=== PATIENT | male | born 1945 | race Caucasian/White ===

== ENCOUNTER → 2017-08-21 | Outpatient (CLI) | payer MEDICARE ==
[~2017-08-21] MED LIST: ALBU6.7H IH; ASPI-496 PO; AZEL205. IH; CARI350T PO; CELE200C PO; DESO15CR21 TP; DIPH25TA65 PO; DOXA4TAB3 PO; FLUT10.6 IH; GABA-826 PO; GLUC1TAB48 PO; HYDR-3245 PO; IBUP-1223 PO; LANS30TA6 PO; LORA10CA PO; LOSA100T2 PO; MONT10TA6 PO; MULT-717 PO; OLOP2.5D EACHEYE; OXYC1TAB9 PO; TRAZ50TA18 PO; TUSSIONEX PO
== END | disposition home or self-care (01) ==
LOC: CVU 07:45
PROVIDERS: ATTEND Internal Medicine Cardiovascular Disease
DX: I25.10 Atherosclerotic heart disease of native coronary artery without angina pectoris (principal); I10 Essential (primary) hypertension; I08.2 Rheumatic disorders of both aortic and tricuspid valves
CPT/HCPCS: 93306

== ENCOUNTER 2017-11-21 13:24 | Emergency (ER) | payer MEDICARE ==
[~2017-11-21] VITALS: Ht 188 cm; Wt 120.0 kg
[2017-11-21] MEDS ORDERED: CYCL7.5T25 PO (13:56)
[2017-11-21] MEDS ORDERED: SODIUM CHLORIDE FLUSH 10ML SYR IVF ONE (14:00)
[2017-11-21 14:16] LABS: BASOPHILS # (AUTO) 0.02 x10^3/uL (0-0.1); BASOPHILS % (AUTO) 0 % (0-1); EOSINOPHILS # (AUTO) 0.16 x10^3/uL (0-0.4); EOSINOPHILS % (AUTO) 2 % (1-7); LYMPHOCYTES # (AUTO) 0.83 x10^3/uL (1-3.4); LYMPHOCYTES % (AUTO) 11 % (22-44); MD NO; MEAN CORPUSCULAR HEMOGLOBIN 31.2 pg (27.5-34.5); MEAN CORPUSCULAR VOLUME 94.4 fL (81-97); MEAN PLATELET VOLUME 6.8 fL (7.4-10.4); MONOCYTES # (AUTO) 0.35 x10^3/uL (0.2-0.8); MONOCYTES % (AUTO) 5 % (2-9); NEUTROPHILS # (AUTO) 6.23 x10^3/uL (1.8-6.8); NEUTROPHILS % (AUTO) 82 % (42-75); PLATELET COUNT 265 x10^3/uL (130-400); RED CELL DISTRIBUTION WIDTH 14.2 % (9.4-14.8)
[2017-11-21 14:24] LABS: INTERNATIONAL NORMALIZED RATIO 1.04 (0.93-1.1); PROTHROMBIN TIME 10.8 Seconds (9.6-11.5)
[2017-11-21 14:27] LABS: ALANINE AMINOTRANSFERASE 29 U/L (12-78); ALBUMIN 3.2 g/dL (3.4-5.0); ANION GAP 5 mmol/L (5-15); CALCIUM 8.4 mg/dL (8.5-10.1); CHLORIDE 108 mmol/L (98-107)
[2017-11-21 14:31] LABS: ALKALINE PHOSPHATASE 77 U/L (45-117); BILIRUBIN,TOTAL 0.3 mg/dL (0.2-1.0); CREATININE 1.56 mg/dL (0.7-1.3); TOTAL PROTEIN 6.7 g/dL (6.4-8.2); TROPONIN I < 0.015 ng/mL (0.000-0.045)
[2017-11-21 16:33] VITALS: BP 182/84
== END 2017-11-21 16:36 | disposition home or self-care (01) ==
LOC: ED 16:20
DX: R55 Syncope and collapse (principal); Z79.82 Long term (current) use of aspirin
CPT/HCPCS: 36415; 70450; 71045; 80053; 84484; 85025; 85610; 85730; 93005; 99285

== ENCOUNTER → 2018-04-19 | Outpatient (CLI) | payer MEDICARE ==
[~2018-04-19] MED LIST changes: +CYCL7.5T25 PO; +OXYC-432 PO; -OXYC1TAB9 PO; +TRAZ-136 PO; -TRAZ50TA18 PO
[2018-04-19 15:17] LABS: MICROSCOPIC NOT IND
[2018-04-19 15:27] LABS: CULTURE INDICATED? NO
== END | disposition home or self-care (01) ==
LOC: LAB 14:50
PROVIDERS: ATTEND Family Medicine
DX: N39.0 Urinary tract infection, site not specified (principal)
CPT/HCPCS: 81003

== ENCOUNTER → 2018-04-23 | Outpatient (CLI) | payer MEDICARE | END | disposition home or self-care (01) | LOC: RAD 08:33 | PROVIDERS: ATTEND Family Medicine | DX: G31.9 Degenerative disease of nervous system, unspecified (principal) | CPT/HCPCS: 70551 ==

== ENCOUNTER 2018-06-06 09:29 | Inpatient (IN) | payer MEDICARE ==
[~2018-06-06] VITALS: Ht 188 cm; Wt 114.5 kg
[~2018-06-06 09:29] MED LIST changes: +ACET-1600 PO; +AREDS 2 PO; +EPINEPHRINE 1 MG/ML, 1ML ONE; +FLUT9.9S NAS; +GABA300C10 PO; +KETO15CR2 TP; +KETOROLAC 60 MG/2 ML ONE; +MELATONIN PO; +OXYGEN NAS; +PRAV20TA2 PO; +ROPIvacaine/PF 0.5%, 30 ML ONE; +SODIUM CHLORIDE 0.9% 100 ML ONE; +TAMS-11 PO; +TIOT4MIS3 INH; +TRANEXAMIC ACID 100 MG/ML, 10ML ONE; -TRAZ-136 PO; +TRAZ50TA66 PO; +VANCOMYCIN 1,000 MG ONE
[2018-06-06] MEDS ORDERED: LACTATED RINGERS 1,000 ML IV SCH (10:11)
[2018-06-06] MEDS ORDERED: FENTANYL PF 250 MCG/5ML ONE (10:21)
[2018-06-06] MEDS ORDERED: SCOPOLAMINE PATCH, 1.5MG PATCH.TD72 TD ONE (10:30)
[2018-06-06] MEDS ORDERED: CYCLOBENZAPRINE HCL 7.5 MG PO PRN (10:30)
[2018-06-06] MEDS ORDERED: MAGNESIUM HYDROXIDE 8%, 30ML UDC PO PRN (10:30)
[2018-06-06] MEDS: GABAPENTIN 100 MG CAPSULE PO SCH (10:30)
[2018-06-06] MEDS ORDERED: ONDANSETRON 4 MG TABLET PO PRN (10:30)
[2018-06-06] MEDS: ALBUTEROL SULFATE 2.5 MG/3 ML NPPB SCH ×4 (10:30→22:30)
[2018-06-06] MEDS ORDERED: ZOLPIDEM 5MG TABLET PO PRN (10:30)
[2018-06-06] MEDS ORDERED: TEMPLATE NON-FORMULARY MED. (Olopatadine Hcl (Pataday) 1 DROP) EACHEYE SCH (10:30)
[2018-06-06] MEDS ORDERED: HYDROcodone/APAP 5/325 TABLET PO PRN (10:30)
[2018-06-06] MEDS ORDERED: BISACODYL 10 MG SUPP PR PRN (10:30)
[2018-06-06] MEDS ORDERED: GABAPENTIN 300 MG CAPSULE PO ONE (10:30)
[2018-06-06] MEDS ORDERED: ACETAMINOPHEN 500 MG TABLET PO ONE (10:30)
[2018-06-06] MEDS ORDERED: OxyconTIN ER 10 MG TAB.ER PO ONE (11:00)
[2018-06-06] MEDS ORDERED: DEXAMETHASONE 4 MG/ML, 1ML ONE (11:26)
[2018-06-06] MEDS ORDERED: CEFAZOLIN 1,000 MG ONE ×2 (11:27)
[2018-06-06] MEDS ORDERED: LABETALOL 5MG/ML, 20ML IV PRN (12:00)
[2018-06-06] MEDS ORDERED: PROMETHAZINE 12.5 MG SUPP PR PRN (12:00)
[2018-06-06] MEDS ORDERED: DIAZEPAM 5 MG/ML, 2ML IVPush PRN (12:00)
[2018-06-06] MEDS ORDERED: hydrALAzine 20 MG/ML, 1ML IV PRN (12:00)
[2018-06-06] MEDS ORDERED: ONDANSETRON 2MG/ML, 2ML IV PRN (12:00)
[2018-06-06] MEDS ORDERED: ONDANSETRON 2MG/ML, 2ML ONE ×2 (12:39)
[2018-06-06] MEDS ORDERED: PROPOFOL 10 MG/ML, 20ML ONE (12:39)
[2018-06-06] MEDS ORDERED: ROCURONIUM 10MG/ML,5ML ONE (12:39)
[2018-06-06] MEDS ORDERED: FENTANYL PF 100 MCG/2ML ONE (13:16)
[2018-06-06] MEDS ORDERED: OXYcodone 5 MG/5 ML ORAL.SOL UDC ONE ×2 (13:16→13:40)
[2018-06-06] MEDS: FENTANYL PF 100 MCG/2ML IV PRN ×2 (13:17→13:24)
[2018-06-06] MEDS: OXYcodone 5 MG/5 ML ORAL.SOL UDC PO PRN ×2 (13:23→13:41)
[2018-06-06] MEDS ORDERED: HYDROmorphone 2 MG/ML, 1ML ONE (13:32)
[2018-06-06] MEDS: HYDROmorphone 2 MG/ML, 1ML IVPush PRN ×4 (13:34→14:06)
[2018-06-06] MEDS: DIPHENHYDRAMINE 25 MG CAPSULE PO PRN (15:11)
[2018-06-06] MEDS: PATADAY MC SCH ×2 (15:30→23:30)
[2018-06-06] MEDS: ALBUTEROL MC SCH ×2 (15:30→23:30)
[2018-06-06] MEDS: OXYcodone IR 5MG TABLET PO PRN ×2 (17:48→22:01)
[2018-06-06] MEDS ORDERED: ASPIRIN 81 MG TABLET EC PO SCH (18:00)
[2018-06-06] MEDS: PRAVASTATIN 20 MG TABLET PO SCH (20:14)
[2018-06-06] MEDS: DOCUSATE 100 MG CAPSULE PO SCH (20:14)
[2018-06-06] MEDS: TAMSULOSIN 0.4 MG CAP.ER.24H PO SCH (20:14)
[2018-06-06] MEDS: GABAPENTIN 300 MG CAPSULE PO SCH (20:14)
[2018-06-06] MEDS: NS + 20MEQ KCL 1,000 ML IV SCH (20:15)
[2018-06-06] MEDS: CEFAZOLIN PMX 2GM/50ML 50 ML IVPB SCH (22:01)
[2018-06-07 00:25] VITALS: BP 104/66
[2018-06-07] MEDS: OXYcodone IR 5MG TABLET PO PRN ×5 (01:40→21:15)
[2018-06-07] MEDS: ALBUTEROL SULFATE 2.5 MG/3 ML NPPB SCH ×5 (02:30→18:51)
[2018-06-07 03:11] VITALS: BP 132/70
[2018-06-07] MEDS ORDERED: DEXAMETHASONE 4 MG/ML, 1ML IVPush SCH (06:00)
[2018-06-07] MEDS: RIVAROXABAN 10 MG TABLET PO SCH (06:07)
[2018-06-07] MEDS: CEFAZOLIN PMX 2GM/50ML 50 ML IVPB SCH (06:08)
[2018-06-07 07:10] VITALS: BP 133/78
[2018-06-07] MEDS: PATADAY MC SCH ×3 (07:52→23:30)
[2018-06-07] MEDS: GABAPENTIN 100 MG CAPSULE PO SCH (07:53)
[2018-06-07] MEDS: AZELASTINE HCL IH SCH (07:53)
[2018-06-07] MEDS: LOSARTAN 25MG TABLET PO SCH (07:54)
[2018-06-07] MEDS: DOXAZOSIN 1MG TABLET PO SCH (07:54)
[2018-06-07] MEDS: OMEPRAZOLE 20 MG CAPSULE.DR PO SCH (07:55)
[2018-06-07] MEDS: FLUTICASONE NASAL SPRAY 16GM NAS SCH (07:56)
[2018-06-07] MEDS: DOCUSATE 100 MG CAPSULE PO SCH ×2 (07:56→21:14)
[2018-06-07] MEDS: NS + 20MEQ KCL 1,000 ML IV SCH ×2 (09:38→22:00)
[2018-06-07] MEDS: ALBUTEROL MC SCH ×3 (09:38→23:30)
[2018-06-07 14:17] VITALS: BP 110/65
[2018-06-07 19:24] VITALS: BP 116/69
[2018-06-07] MEDS: TAMSULOSIN 0.4 MG CAP.ER.24H PO SCH (21:14)
[2018-06-07] MEDS: GABAPENTIN 300 MG CAPSULE PO SCH (21:15)
[2018-06-07] MEDS: PRAVASTATIN 20 MG TABLET PO SCH (21:15)
[2018-06-07] MEDS: ONDANSETRON 2MG/ML, 2ML IV PRN (23:26)
[2018-06-07] MEDS: ACETAMINOPHEN 650 MG/20.3 ML UDC PO PRN (23:26)
[2018-06-08] MEDS: OXYcodone IR 5MG TABLET PO PRN ×5 (01:28→21:15)
[2018-06-08 01:36] VITALS: BP 109/68
[2018-06-08] MEDS: ACETAMINOPHEN 650 MG/20.3 ML UDC PO PRN (05:42)
[2018-06-08] MEDS: SENNA/DOCUSATE TABLET PO PRN (05:42)
[2018-06-08] MEDS: RIVAROXABAN 10 MG TABLET PO SCH (05:42)
[2018-06-08] MEDS: ALBUTEROL SULFATE 2.5 MG/3 ML NPPB SCH (07:15)
[2018-06-08] MEDS: PATADAY MC SCH ×3 (07:30→23:30)
[2018-06-08] MEDS: ALBUTEROL MC SCH ×3 (07:30→23:30)
[2018-06-08] MEDS ORDERED: ALBUTEROL SULFATE 2.5 MG/3 ML NPPB PRN (08:00)
[2018-06-08] MEDS: DOXAZOSIN 1MG TABLET PO SCH (08:51)
[2018-06-08] MEDS: DOCUSATE 100 MG CAPSULE PO SCH ×2 (08:52→21:15)
[2018-06-08] MEDS: OMEPRAZOLE 20 MG CAPSULE.DR PO SCH (08:52)
[2018-06-08] MEDS: GABAPENTIN 100 MG CAPSULE PO SCH (08:52)
[2018-06-08] MEDS: LOSARTAN 25MG TABLET PO SCH (08:53)
[2018-06-08] MEDS: FLUTICASONE NASAL SPRAY 16GM NAS SCH (08:54)
[2018-06-08] MEDS: AZELASTINE HCL IH SCH (08:54)
[2018-06-08] MEDS: NS + 20MEQ KCL 1,000 ML IV SCH (08:56)
[2018-06-08 09:08] VITALS: BP 108/71
[2018-06-08] MEDS: ACETAMINOPHEN 650 MG/20.3 ML UDC PO SCH ×2 (14:00→21:18)
[2018-06-08] MEDS ORDERED: ACETAMINOPHEN 500 MG TABLET ONE (14:08)
[2018-06-08 14:36] VITALS: BP 106/67
[2018-06-08] MEDS: GABAPENTIN 300 MG CAPSULE PO SCH (21:14)
[2018-06-08] MEDS: TAMSULOSIN 0.4 MG CAP.ER.24H PO SCH (21:14)
[2018-06-08] MEDS: PRAVASTATIN 20 MG TABLET PO SCH (21:15)
[2018-06-08 21:16] VITALS: BP 96/62
[2018-06-09] MEDS: OXYcodone IR 5MG TABLET PO PRN ×2 (01:25→18:57)
[2018-06-09 01:28] VITALS: BP 137/85
[2018-06-09] MEDS: ONDANSETRON 2MG/ML, 2ML IV PRN (05:22)
[2018-06-09] MEDS: RIVAROXABAN 10 MG TABLET PO SCH (05:22)
[2018-06-09] MEDS: NS + 20MEQ KCL 1,000 ML IV SCH ×2 (05:39→17:00)
[2018-06-09] MEDS: ACETAMINOPHEN 650 MG/20.3 ML UDC PO SCH ×2 (05:41→14:00)
[2018-06-09 06:51] VITALS: BP 106/67
[2018-06-09] MEDS ORDERED: NS + 20MEQ KCL 1,000 ML IV SCH (07:30)
[2018-06-09] MEDS: PATADAY MC SCH ×3 (07:30→20:21)
[2018-06-09] MEDS: ALBUTEROL MC SCH ×3 (07:30→20:21)
[2018-06-09] MEDS ORDERED: POLYETHYLENE GLYCOL 17 GM PACKET NG ONE (07:30)
[2018-06-09] MEDS ORDERED: DEXAMETHASONE 4 MG/ML, 1ML IVPush ONE (07:30)
[2018-06-09] MEDS ORDERED: ACETAMINOPHEN 500 MG TABLET ONE ×3 (07:49→23:12)
[2018-06-09] MEDS: GABAPENTIN 100 MG CAPSULE PO SCH (07:53)
[2018-06-09] MEDS: DOXAZOSIN 1MG TABLET PO SCH (07:54)
[2018-06-09] MEDS: DOCUSATE 100 MG CAPSULE PO SCH ×2 (07:54→20:19)
[2018-06-09] MEDS: OMEPRAZOLE 20 MG CAPSULE.DR PO SCH (07:54)
[2018-06-09] MEDS: LOSARTAN 25MG TABLET PO SCH (07:54)
[2018-06-09] MEDS: FLUTICASONE NASAL SPRAY 16GM NAS SCH (07:54)
[2018-06-09] MEDS: AZELASTINE HCL IH SCH (07:55)
[2018-06-09 15:46] VITALS: BP 104/69
[2018-06-09 20:17] VITALS: BP 104/67
[2018-06-09] MEDS: SENNA/DOCUSATE TABLET PO PRN (20:18)
[2018-06-09] MEDS: PRAVASTATIN 20 MG TABLET PO SCH (20:19)
[2018-06-09] MEDS: GABAPENTIN 300 MG CAPSULE PO SCH (20:19)
[2018-06-09] MEDS: TAMSULOSIN 0.4 MG CAP.ER.24H PO SCH (20:19)
[2018-06-09] MEDS: ACETAMINOPHEN 500 MG TABLET PO SCH (23:14)
[2018-06-10 02:58] VITALS: BP 112/67
[2018-06-10] MEDS: OXYcodone IR 5MG TABLET PO PRN ×2 (05:21→23:01)
[2018-06-10] MEDS: RIVAROXABAN 10 MG TABLET PO SCH (05:21)
[2018-06-10] MEDS: NS + 20MEQ KCL 1,000 ML IV SCH ×2 (05:30→17:00)
[2018-06-10] MEDS: PATADAY MC SCH ×3 (06:33→23:01)
[2018-06-10] MEDS: ALBUTEROL MC SCH ×3 (06:33→23:01)
[2018-06-10] MEDS: GABAPENTIN 100 MG CAPSULE PO SCH (07:40)
[2018-06-10] MEDS: ACETAMINOPHEN 500 MG TABLET PO SCH ×3 (07:40→23:01)
[2018-06-10] MEDS: LOSARTAN 25MG TABLET PO SCH (07:40)
[2018-06-10] MEDS: AZELASTINE HCL IH SCH (07:41)
[2018-06-10] MEDS: FLUTICASONE NASAL SPRAY 16GM NAS SCH (07:41)
[2018-06-10] MEDS: OMEPRAZOLE 20 MG CAPSULE.DR PO SCH (07:41)
[2018-06-10] MEDS: DOXAZOSIN 1MG TABLET PO SCH (07:41)
[2018-06-10] MEDS: DOCUSATE 100 MG CAPSULE PO SCH ×2 (07:41→21:03)
[2018-06-10 07:58] VITALS: BP 107/64
[2018-06-10] MEDS ORDERED: OXYC5CAP2 PO (09:54)
[2018-06-10] MEDS ORDERED: TRAM50TA2 PO (09:55)
[2018-06-10] MEDS ORDERED: RIVA10TA PO (09:56)
[2018-06-10] MEDS ORDERED: MELO7.5T31 PO (09:57)
[2018-06-10] MEDS ORDERED: MAGNESIUM CITRATE 300ML ORAL SOL PO PRN (12:30)
[2018-06-10 14:06] VITALS: BP 107/54
[2018-06-10] MEDS: ONDANSETRON 2MG/ML, 2ML IV PRN (16:17)
[2018-06-10] MEDS ORDERED: PANTOPRAZOLE 40 MG IV IVPush ONE (17:00)
[2018-06-10 17:34] LABS: TROPONIN I < 0.015 ng/mL (0.000-0.045)
[2018-06-10] MEDS: DIPHENHYDRAMINE 25 MG CAPSULE PO PRN (18:23)
[2018-06-10 19:55] VITALS: BP 112/62
[2018-06-10] MEDS: PRAVASTATIN 20 MG TABLET PO SCH (21:03)
[2018-06-10] MEDS: GABAPENTIN 300 MG CAPSULE PO SCH (21:03)
[2018-06-10] MEDS: TAMSULOSIN 0.4 MG CAP.ER.24H PO SCH (21:03)
[2018-06-11 02:01] VITALS: BP 114/76
[2018-06-11] MEDS: RIVAROXABAN 10 MG TABLET PO SCH (06:23)
[2018-06-11] MEDS: NS + 20MEQ KCL 1,000 ML IV SCH (06:30)
[2018-06-11 08:25] VITALS: BP 152/82
[2018-06-11] MEDS: DOXAZOSIN 1MG TABLET PO SCH (09:21)
[2018-06-11] MEDS: GABAPENTIN 100 MG CAPSULE PO SCH (09:21)
[2018-06-11] MEDS: OMEPRAZOLE 20 MG CAPSULE.DR PO SCH (09:22)
[2018-06-11] MEDS: DOCUSATE 100 MG CAPSULE PO SCH (09:22)
[2018-06-11] MEDS: LOSARTAN 25MG TABLET PO SCH (09:22)
[2018-06-11] MEDS: ACETAMINOPHEN 500 MG TABLET PO SCH ×2 (09:22→15:30)
[2018-06-11] MEDS: AZELASTINE HCL IH SCH (09:25)
[2018-06-11] MEDS: FLUTICASONE NASAL SPRAY 16GM NAS SCH (09:25)
[2018-06-11] MEDS: PATADAY MC SCH ×2 (09:26→15:30)
[2018-06-11] MEDS ORDERED: CALCIUM CARBONATE 500 MG TAB.CHEW PO PRN (09:30)
[2018-06-11 13:49] VITALS: BP 156/79
[2018-06-11 18:12] VITALS: BP 104/67
[2018-06-11] MEDS: OXYcodone IR 5MG TABLET PO PRN (18:42)
== END 2018-06-11 18:45 | DRG 470 ==
LOC: ORIP 09:29 → 4NOR 14:48
PROVIDERS: ADMIT Orthopaedic Surgery; ATTEND Orthopaedic Surgery
PROC: 0SR906A Replacement of Right Hip Joint with Oxidized Zirconium on Polyethylene Synthetic Substitute, Uncemented, Open Approach (ICD-10-PCS; principal; 2018-06-06 11:45)
DX: M16.11 Unilateral primary osteoarthritis, right hip (principal); M96.89 Other intraoperative and postprocedural complications and disorders of the musculoskeletal system; Y83.8 Other surgical procedures as the cause of abnormal reaction of the patient, or of later complication, without mention of misadventure at the time of the procedure; Y79.3 Surgical instruments, materials and orthopedic devices (including sutures) associated with adverse incidents; Y92.234 Operating room of hospital as the place of occurrence of the external cause; K21.9 Gastro-esophageal reflux disease without esophagitis; J45.909 Unspecified asthma, uncomplicated; Z88.5 Allergy status to narcotic agent; Z98.1 Arthrodesis status; Z90.89 Acquired absence of other organs; Z98.52 Vasectomy status; Z86.711 Personal history of pulmonary embolism; Z88.2 Allergy status to sulfonamides; Z91.040 Latex allergy status
CPT/HCPCS: 36415; 72170; 76000; 84484; 85014; 85018; 86850; 86900; 93005; 94640; C1713; G0378; J0171; J0690; J1100; J1170; J1885; J2405; J2704; J2795; J3010; J3370; J3480; J7613; Q0162; C1776; C9113; J7120; Q0163

== ENCOUNTER → 2018-08-26 | Outpatient (CLI) | payer MEDICARE ==
[~2018-08-26] MED LIST changes: -EPINEPHRINE 1 MG/ML, 1ML ONE; -KETOROLAC 60 MG/2 ML ONE; +MELO7.5T31 PO; +OMNIPAQUE 350 MG/ML, 100ML BOTTLE ONE; +OXYC5CAP2 PO; +RIVA10TA2 PO; -ROPIvacaine/PF 0.5%, 30 ML ONE; -SODIUM CHLORIDE 0.9% 100 ML ONE; +TRAM50TA2 PO; -TRANEXAMIC ACID 100 MG/ML, 10ML ONE; -VANCOMYCIN 1,000 MG ONE
== END | disposition home or self-care (01) ==
LOC: RAD 13:23
PROVIDERS: ATTEND Family Medicine
DX: R42 Dizziness and giddiness (principal); I25.10 Atherosclerotic heart disease of native coronary artery without angina pectoris; I44.0 Atrioventricular block, first degree; R06.02 Shortness of breath; R06.00 Dyspnea, unspecified
CPT/HCPCS: 71275; Q9967

== ENCOUNTER 2018-11-16 11:13 | Observation (INO) | payer MEDICARE ==
[~2018-11-16] VITALS: Ht 185.4 cm; Wt 115.0 kg
[~2018-11-16 11:13] MED LIST changes: +KETO15CR17 TP; -KETO15CR2 TP; -OMNIPAQUE 350 MG/ML, 100ML BOTTLE ONE
[2018-11-16] MEDS ORDERED: NITROGLYCERIN SINGLE TAB 0.4 MG SL PRN (11:30)
[2018-11-16] MEDS ORDERED: NITROGLYCERIN SINGLE TAB 0.4 MG SL ONE (11:42)
[2018-11-16 11:44] LABS: BASOPHILS # (AUTO) 0.01 x10^3/uL (0-0.1); BASOPHILS % (AUTO) 0 % (0-1); EOSINOPHILS # (AUTO) 0.27 x10^3/uL (0-0.4); EOSINOPHILS % (AUTO) 3 % (1-7); LYMPHOCYTES # (AUTO) 1.16 x10^3/uL (1-3.4); LYMPHOCYTES % (AUTO) 14 % (22-44); MD NO; MEAN CORPUSCULAR HEMOGLOBIN 29.9 pg (27.5-34.5); MEAN CORPUSCULAR HGB CONC 32.4 g/dL (33.2-36.2); MEAN CORPUSCULAR VOLUME 92.4 fL (81-97); MEAN PLATELET VOLUME 7.2 fL (7.4-10.4); MONOCYTES # (AUTO) 0.27 x10^3/uL (0.2-0.8); MONOCYTES % (AUTO) 3 % (2-9); NEUTROPHILS # (AUTO) 6.87 x10^3/uL (1.8-6.8); NEUTROPHILS % (AUTO) 80 % (42-75); PLATELET COUNT 358 x10^3/uL (130-400); RED BLOOD COUNT 5.14 x10^6/uL (4.38-5.82); RED CELL DISTRIBUTION WIDTH 15.7 % (9.4-14.8)
[2018-11-16 11:55] LABS: INTERNATIONAL NORMALIZED RATIO 1.06 (0.93-1.1); PROTHROMBIN TIME 11.1 Seconds (9.6-11.5)
[2018-11-16 11:56] LABS: ALANINE AMINOTRANSFERASE 23 U/L (12-78); ALBUMIN 3.8 g/dL (3.4-5.0); ANION GAP 6 mmol/L (5-15); CALCIUM 8.9 mg/dL (8.5-10.1); CHLORIDE 106 mmol/L (98-107); CREATININE 1.34 mg/dL (0.7-1.3)
[2018-11-16 12:00] LABS: ALKALINE PHOSPHATASE 90 U/L (45-117); BILIRUBIN,TOTAL 0.4 mg/dL (0.2-1.0); TOTAL PROTEIN 7.7 g/dL (6.4-8.2); TROPONIN I < 0.015 ng/mL (0.000-0.045)
--- NOTE | 2018-11-16 12:34 | NUR ---
PT RESTING IN GURNEY WITH AT BEDSIDE, ON MONTOR. STATES PAIN IS BETTER AFTER NITRO. CALL LIGHT WITHIN REACH
--- NOTE | 2018-11-16 13:06 | NUR ---
PT STATED HE HAD ANOTHER EPISODE OF CP 01/31 CP AND WENT AWAY, MD NOTIFIED, EKG ORDERED
--- NOTE | 2018-11-16 13:07 | NUR ---
PT STATES HE DOES NOT WANT MORPHINE, IT MAKES HIM SICK, SUKHJINDER OFFERED, PT STATED THE PAIN IS GONE AND HE DOES NOT WANT MORPHINE HE DOES NOT LIKE IT. NOTIFIED
--- NOTE | 2018-11-16 13:13 | NUR ---
REPORT TO DEVEN GIORDANO
[2018-11-16] MEDS ORDERED: morphine SULFATE 10 MG/ML, 1ML IVPush ONE (13:30)
[2018-11-16] MEDS ORDERED: ASPI-515 PO (13:58)
[2018-11-16] MEDS ORDERED: MONT10TA6 PO (13:58)
[2018-11-16] MEDS ORDERED: FURO20TA3 PO ×2 (13:58)
[2018-11-16] MEDS ORDERED: CELE200C PO (13:58)
[2018-11-16] MEDS ORDERED: POTA10TA11 PO (13:58)
[2018-11-16] MEDS ORDERED: METO5TAB5 PO (13:58)
[2018-11-16] MEDS ORDERED: ALBU6.7H IH (13:58)
[2018-11-16] MEDS ORDERED: SODIUM CHLORIDE 0.9% 1,000 ML IV SCH (14:14)
[2018-11-16 14:18] VITALS: BP 117/69
[2018-11-16] MEDS ORDERED: ONDANSETRON ODT 4 MG PO PRN (14:30)
[2018-11-16] MEDS ORDERED: LABETALOL 5MG/ML, 20ML IVPush PRN (14:30)
[2018-11-16] MEDS ORDERED: ONDANSETRON 2MG/ML, 2ML IVPush PRN (14:30)
[2018-11-16] MEDS ORDERED: NITROGLYCERIN 0.4 MG/SPRAY SL PRN (14:30)
[2018-11-16] MEDS ORDERED: ALBUTEROL SULFATE 2.5 MG/3 ML HHN PRN (14:30)
[2018-11-16] MEDS ORDERED: CYCLOBENZAPRINE 10 MG TABLET PO PRN (14:30)
[2018-11-16] MEDS ORDERED: NITROGLYCERIN 0.4 MG BOTTLE (25 TABS) SL PRN (14:30)
[2018-11-16] MEDS ORDERED: POLYETHYLENE GLYCOL 17 GM PACKET PO PRN (14:30)
[2018-11-16] MEDS ORDERED: ACETAMINOPHEN 325 MG TABLET PO PRN (14:30)
[2018-11-16 15:15] LABS: TROPONIN I < 0.015 ng/mL (0.000-0.045)
[2018-11-16] MEDS: HEPARIN 5,000 UNITS/ML, 1ML SQ SCH (15:37)
[2018-11-16] MEDS ORDERED: OMNIPAQUE 350 MG/ML, 100ML BOTTLE ONE (17:07)
[2018-11-16 18:33] LABS: TROPONIN I < 0.015 ng/mL (0.000-0.045)
[2018-11-16 19:34] VITALS: BP 120/73
[2018-11-16] MEDS ORDERED: GABAPENTIN 300 MG CAPSULE PO SCH (21:00)
[2018-11-16] MEDS ORDERED: TAMSULOSIN 0.4 MG CAP.ER.24H PO SCH (21:00)
[2018-11-16] MEDS ORDERED: PRAVASTATIN 20 MG TABLET PO SCH (21:00)
[2018-11-16 22:25] VITALS: BP_SYST 134; BP_SYST 149; BP_DIAS 81; BP_DIAS 90
[2018-11-16 22:26] VITALS: BP 139/89
[2018-11-16] MEDS ORDERED: MONTELUKAST 10 MG TABLET PO SCH (23:30)
[2018-11-17] VITALS (7 sets, daily range): BP systolic 126–157; BP diastolic 56–95
[2018-11-17] MEDS: HEPARIN 5,000 UNITS/ML, 1ML SQ SCH ×3 (00:03→16:00)
[2018-11-17] MEDS: OXYcodone IR 5MG TABLET PO PRN ×2 (04:10→10:13)
[2018-11-17 06:18] LABS: ANION GAP 8 mmol/L (5-15); CALCIUM 8.4 mg/dL (8.5-10.1); CHLORIDE 107 mmol/L (98-107)
[2018-11-17 06:24] LABS: MEAN CORPUSCULAR HEMOGLOBIN 29.9 pg (27.5-34.5); MEAN CORPUSCULAR HGB CONC 32.3 g/dL (33.2-36.2); MEAN CORPUSCULAR VOLUME 92.6 fL (81-97); MEAN PLATELET VOLUME 7.2 fL (7.4-10.4); PLATELET COUNT 303 x10^3/uL (130-400); RED CELL DISTRIBUTION WIDTH 15.8 % (9.4-14.8)
[2018-11-17 06:25] LABS: BASOPHILS # (AUTO) 0.03 x10^3/uL (0-0.1); BASOPHILS % (AUTO) 0 % (0-1); EOSINOPHILS # (AUTO) 0.37 x10^3/uL (0-0.4); EOSINOPHILS % (AUTO) 4 % (1-7); LYMPHOCYTES # (AUTO) 1.62 x10^3/uL (1-3.4); LYMPHOCYTES % (AUTO) 18 % (22-44); MONOCYTES # (AUTO) 0.51 x10^3/uL (0.2-0.8); MONOCYTES % (AUTO) 6 % (2-9); NEUTROPHILS # (AUTO) 6.48 x10^3/uL (1.8-6.8); NEUTROPHILS % (AUTO) 72 % (42-75)
[2018-11-17 06:26] LABS: MD NO
[2018-11-17 06:30] LABS: CHOL/HDL RATIO 2.5; CHOLESTEROL, TOTAL 116 mg/dL (140-239); CREATININE 1.25 mg/dL (0.7-1.3); HDL CHOL % 40 % (26-37); HDL CHOLESTEROL (DIRECT) 46 mg/dL (40-60); LDL CHOLESTEROL,CALCULATED 55 mg/dL (54-169); LDL/HDL RATIO 1.2 (0.5-3.0); TRIGLYCERIDES 74 mg/dL (50-200); VLDL CHOLESTEROL 15 mg/dL (0-25)
[2018-11-17] MEDS ORDERED: PANTOPRAZOLE 40 MG IV IVPush SCH (07:30)
[2018-11-17] MEDS ORDERED: REGADENOSON 0.4 MG/5 ML SYRINGE ONE (07:49)
[2018-11-17] MEDS ORDERED: MULTIVITAMINS/MINERALS TABLET PO SCH (09:00)
[2018-11-17] MEDS ORDERED: SENNA/DOCUSATE TABLET PO SCH (09:00)
[2018-11-17] MEDS ORDERED: [UNRECOGNIZED DRUG - OTHER] PO SCH (09:00)
[2018-11-17] MEDS ORDERED: GLUCOSAM CHONDRO HERB PO SCH (09:00)
[2018-11-17] MEDS ORDERED: ASPIRIN 81 MG TABLET EC PO SCH (09:00)
[2018-11-17] MEDS ORDERED: FLUTICASONE NASAL SPRAY 16GM NAS SCH (09:00)
[2018-11-17] MEDS ORDERED: MONTELUKAST 10 MG TABLET PO SCH (09:00)
[2018-11-17] MEDS ORDERED: OXYcodone/APAP 10/325MG TABLET PO ONE (12:00)
[2018-11-17] MEDS ORDERED: SODIUM CHLORIDE 0.9% 1,000 ML IV SCH (14:14)
== END 2018-11-17 17:20 | disposition home or self-care (01) ==
LOC: ED 11:40 → 5SO 13:36 → ED 15:19 → 5SO 15:21
PROVIDERS: ADMIT Hospitalist; ATTEND Hospitalist
DX: R60.0 Localized edema (principal); G89.4 Chronic pain syndrome; N40.0 Benign prostatic hyperplasia without lower urinary tract symptoms; J44.9 Chronic obstructive pulmonary disease, unspecified; I10 Essential (primary) hypertension; E78.5 Hyperlipidemia, unspecified; Z86.718 Personal history of other venous thrombosis and embolism; Z91.040 Latex allergy status; Z91.09 Other allergy status, other than to drugs and biological substances; Z86.711 Personal history of pulmonary embolism; Z96.641 Presence of right artificial hip joint; Z96.652 Presence of left artificial knee joint; Z99.81 Dependence on supplemental oxygen
CPT/HCPCS: 36415; 71045; 71275; 78452; 80048; 80053; 80061; 83735; 83880; 84100; 84443; 84484; 85025; 85379; 85610; 85730; 93005; 93017; 93308; 96361; 96372; 96374; 96375; 99284; A9502; C9113; C9898; G0378; J1644; J2405; J2785; J7030; Q9967; 96366

== ENCOUNTER 2018-11-18 07:13 | Outpatient (CLI) | payer MEDICARE ==
[~2018-11-18 07:13] MED LIST changes: +ASPI-515 PO; +FURO20TA3 PO; +METO5TAB5 PO; +POTA10TA11 PO
== END 2018-11-19 23:59 | disposition home or self-care (01) ==
LOC: RAD 07:13
PROVIDERS: ATTEND Family Medicine
DX: M25.559 Pain in unspecified hip (principal)
CPT/HCPCS: 78806; A9547

== ENCOUNTER 2018-12-01 11:25 | Observation (INO) | payer MEDICARE ==
[~2018-12-01] VITALS: Ht 185.4 cm; Wt 111.4 kg
--- NOTE | 2018-12-01 11:50 | NUR ---
Pt asked MARKELL to, "please call my brother Ebenezer and let him know that I am here. His number is [phone]." Called Ebenezer and left voicemail for call back.
--- NOTE | 2018-12-01 11:56 | NUR ---
LATE NOTE ENTRY FOR 1135: Pt presents to ED by EMS as recommended by PCP for c/o "dizziness" and "sea sickness" for one month with nausea and "a few" episodes of vomiting after pt took two does of Cymbalta prescribed by his pain management doctor for his chronic back pain after eight back surgeries. Pt is resting on gureny connected to cardiac catheterization technologist, NIBP cuff, and pulse ox monitor. NADN. No needs expressed at this time. Both bedrails up for safety measures. Call light within reach. Pt denies cp, sob, vomiting, diarrhea, trauma. CMS intact.
--- NOTE | 2018-12-01 11:56 | NUR ---
Spoke to MRI regarding pt's spinal cord stimulator. All questions answered.
[2018-12-01] MEDS ORDERED: SODIUM CHLORIDE FLUSH 10ML SYR IVF ONE (12:00)
[2018-12-01] MEDS ORDERED: ONDANSETRON 2MG/ML, 2ML IVPush ONE (12:00)
[2018-12-01] MEDS ORDERED: DIAZEPAM 5 MG/ML, 2ML IVPush ONE (12:00)
--- NOTE | 2018-12-01 12:18 | NUR ---
Pt's brother Ebenezer called back. Spoke to Ebenezer, per pt verbal request, about pt's health and where abouts. All questions answered.
--- NOTE | 2018-12-01 12:19 | NUR ---
Sent yellow slip to pharmacy for medication per EMAR.
[2018-12-01 12:23] LABS: BASOPHILS # (AUTO) 0.02 x10^3/uL (0-0.1); BASOPHILS % (AUTO) 0 % (0-1); EOSINOPHILS # (AUTO) 0.36 x10^3/uL (0-0.4); EOSINOPHILS % (AUTO) 4 % (1-7); LYMPHOCYTES # (AUTO) 0.76 x10^3/uL (1-3.4); LYMPHOCYTES % (AUTO) 9 % (22-44); MD NO; MEAN CORPUSCULAR HEMOGLOBIN 29.8 pg (27.5-34.5); MEAN CORPUSCULAR VOLUME 90.4 fL (81-97); MEAN PLATELET VOLUME 6.7 fL (7.4-10.4); MONOCYTES # (AUTO) 0.43 x10^3/uL (0.2-0.8); MONOCYTES % (AUTO) 5 % (2-9); NEUTROPHILS % (AUTO) 82 % (42-75); PLATELET COUNT 268 x10^3/uL (130-400); RED BLOOD COUNT 5.15 x10^6/uL (4.38-5.82); RED CELL DISTRIBUTION WIDTH 16.1 % (9.4-14.8)
[2018-12-01] MEDS ORDERED: ONDANSETRON 2MG/ML, 2ML ONE (12:29)
[2018-12-01 12:37] LABS: CHLORIDE 106 mmol/L (98-107)
--- NOTE | 2018-12-01 12:45 | NUR ---
Provided medicaiton per EMAR. ARCOS. No needs expressed. Both bedrails up for safety measures. Call light within reach. Pt remains connected to quality assurance monitor chassis, NIBP cuff, and pulse ox monitor. Pt has NC on at 3 L of oxygen.
[2018-12-01 12:47] LABS: ALANINE AMINOTRANSFERASE 22 U/L (12-78); ALBUMIN 3.6 g/dL (3.4-5.0); ALKALINE PHOSPHATASE 92 U/L (45-117); ANION GAP 6 mmol/L (5-15); BILIRUBIN,TOTAL 0.6 mg/dL (0.2-1.0); CALCIUM 8.9 mg/dL (8.5-10.1); CREATININE 1.33 mg/dL (0.7-1.3); TOTAL PROTEIN 7.6 g/dL (6.4-8.2); TROPONIN I < 0.015 ng/mL (0.000-0.045)
[2018-12-01] MEDS ORDERED: LOSA25TA2 PO (13:03)
[2018-12-01] MEDS ORDERED: LANS30CA60 PO (13:03)
[2018-12-01] MEDS ORDERED: DOXA1TAB2 PO (13:03)
[2018-12-01] MEDS ORDERED: POTA10TA6 PO (13:03)
[2018-12-01] MEDS ORDERED: TIOT4MIS3 INH (13:06)
[2018-12-01] MEDS ORDERED: FLUT1BLS3 INH (13:06)
[2018-12-01] MEDS: SODIUM CHLORIDE FLUSH 10ML SYR IVF PRN ×2 (14:48→16:26)
--- NOTE | 2018-12-01 15:25 | NUR ---
Late note entry for 1330: Pt up at bedside using urinal. NADN. Pt back to [facility]. Both bedrails up for safety measures. Call light within reach. No other needs expressed at this time.
--- NOTE | 2018-12-01 15:26 | NUR ---
LATE NOTE FOR 1449: Pt resting on gurney and requesting to sit on edge of bed. Pt's spouse at bedside. Provided chair for spouse. Pt sitting on edge of bed. Call light within reach. NADN. No other needs expressed at this time.
[2018-12-01] MEDS ORDERED: GABA-826 PO (15:29)
[2018-12-01] MEDS ORDERED: Flonase NAS (15:36)
[2018-12-01] MEDS ORDERED: VITAMIN AREDS EACHEYE (15:36)
[2018-12-01] MEDS ORDERED: hydrocodone (15:39)
[2018-12-01] MEDS ORDERED: oxycodone (15:39)
[2018-12-01] MEDS ORDERED: flexeril (15:39)
[2018-12-01] MEDS ORDERED: ketoconazole (15:42)
[2018-12-01] MEDS ORDERED: Tylenol PO (15:42)
[2018-12-01] MEDS ORDERED: claritin (15:42)
[2018-12-01] MEDS ORDERED: [UNRECOGNIZED DRUG - OTHER] (15:42)
--- NOTE | 2018-12-01 15:59 | NUR ---
Provided report to PASQUALE Elias. All questions answered. Pt ready to transfer to floor from ED.
[2018-12-01 16:30] VITALS: BP 118/76
[2018-12-01] MEDS ORDERED: OXYcodone/APAP 10/325MG TABLET PO ONE (18:40)
[2018-12-01] MEDS ORDERED: ACETAMINOPHEN 325 MG TABLET PO PRN (19:30)
[2018-12-01] MEDS ORDERED: TEMAZEPAM 15 MG CAPSULE PO PRN (19:30)
[2018-12-01] MEDS: HEPARIN 5,000 UNITS/ML, 1ML SQ SCH (19:30)
[2018-12-01 20:31] VITALS: BP 129/80
[2018-12-01] MEDS ORDERED: ALBUTEROL SULFATE 2.5 MG/3 ML NPPB PRN (22:00)
[2018-12-02] VITALS (7 sets, daily range): BP systolic 122–148; BP diastolic 74–94
[2018-12-02] MEDS: HEPARIN 5,000 UNITS/ML, 1ML SQ SCH ×3 (02:44→19:30)
[2018-12-02 05:34] LABS: BASOPHILS # (AUTO) 0.03 x10^3/uL (0-0.1); BASOPHILS % (AUTO) 0 % (0-1); EOSINOPHILS # (AUTO) 0.54 x10^3/uL (0-0.4); EOSINOPHILS % (AUTO) 7 % (1-7); LYMPHOCYTES # (AUTO) 1.32 x10^3/uL (1-3.4); LYMPHOCYTES % (AUTO) 18 % (22-44); MD NO; MEAN CORPUSCULAR HEMOGLOBIN 30.4 pg (27.5-34.5); MEAN CORPUSCULAR HGB CONC 32.9 g/dL (33.2-36.2); MEAN CORPUSCULAR VOLUME 92.3 fL (81-97); MEAN PLATELET VOLUME 6.9 fL (7.4-10.4); MONOCYTES # (AUTO) 0.52 x10^3/uL (0.2-0.8); MONOCYTES % (AUTO) 7 % (2-9); NEUTROPHILS # (AUTO) 5.03 x10^3/uL (1.8-6.8); NEUTROPHILS % (AUTO) 68 % (42-75); PLATELET COUNT 244 x10^3/uL (130-400); RED BLOOD COUNT 4.72 x10^6/uL (4.38-5.82); RED CELL DISTRIBUTION WIDTH 16.3 % (9.4-14.8)
[2018-12-02 05:38] LABS: ANION GAP 5 mmol/L (5-15); CALCIUM 8.9 mg/dL (8.5-10.1); CHLORIDE 105 mmol/L (98-107); CREATININE 1.29 mg/dL (0.7-1.3)
[2018-12-02] MEDS: ONDANSETRON ODT 4 MG PO PRN (06:02)
[2018-12-02] MEDS: OXYcodone IR 5MG TABLET PO PRN ×2 (06:28→20:07)
[2018-12-02] MEDS ORDERED: OXYcodone 5 MG/5 ML ORAL.SOL UDC PO PRN (06:30)
[2018-12-02] MEDS: SENNA/DOCUSATE TABLET PO SCH (09:00)
[2018-12-02] MEDS: MECLIZINE 25 MG TABLET PO SCH ×3 (09:55→20:14)
[2018-12-02] MEDS: POLYETHYLENE GLYCOL 17 GM PACKET PO PRN ×2 (09:57→20:07)
[2018-12-02] MEDS ORDERED: ALBUTEROL SULFATE 2.5 MG/3 ML HHN SCH (16:00)
[2018-12-02] MEDS ORDERED: KETOCONAZOLE CRM 2%, 15GM TP SCH (16:00)
[2018-12-02] MEDS ORDERED: PRAVASTATIN 20 MG TABLET PO SCH (21:00)
[2018-12-03 00:49] VITALS: BP 129/85
[2018-12-03] MEDS: OXYcodone IR 5MG TABLET PO PRN (02:20)
[2018-12-03] MEDS: HEPARIN 5,000 UNITS/ML, 1ML SQ SCH (03:30)
[2018-12-03] MEDS: ONDANSETRON ODT 4 MG PO PRN (06:17)
[2018-12-03 07:35] VITALS: BP 123/80
[2018-12-03] MEDS ORDERED: MECL25TA4 PO (08:28)
[2018-12-03] MEDS: MECLIZINE 25 MG TABLET PO SCH (08:35)
[2018-12-03] MEDS: SENNA/DOCUSATE TABLET PO SCH (08:36)
[2018-12-03] MEDS ORDERED: FLUTICASONE NASAL SPRAY 16GM NAS SCH (09:00)
[2018-12-03] MEDS ORDERED: AZELASTINE HCL IH SCH (09:00)
[2018-12-03] MEDS ORDERED: OMEPRAZOLE 20 MG CAPSULE.DR PO SCH (09:00)
[2018-12-03] MEDS ORDERED: BUDESONIDE 0.5 MG/2 ML INHA HHN SCH (09:00)
[2018-12-03] MEDS ORDERED: ASPIRIN 81 MG TABLET EC PO SCH (09:00)
[2018-12-03] MEDS ORDERED: DOXAZOSIN 1MG TABLET PO SCH (09:00)
[2018-12-03] MEDS ORDERED: LOSARTAN 25MG TABLET PO SCH (09:00)
== END 2018-12-03 10:19 | disposition home or self-care (01) ==
LOC: ED 13:55 → EDIP 15:19 → INTOOBSV 15:19 → 4WST 16:14 → DCLOUNGE 12-03 10:06
PROVIDERS: ADMIT Emergency Medicine; ATTEND Emergency Medicine
DX: R42 Dizziness and giddiness (principal); I13.0 Hypertensive heart and chronic kidney disease with heart failure and stage 1 through stage 4 chronic kidney disease, or unspecified chronic kidney disease; N18.9 Chronic kidney disease, unspecified; I50.30 Unspecified diastolic (congestive) heart failure; J44.9 Chronic obstructive pulmonary disease, unspecified; E78.5 Hyperlipidemia, unspecified; N40.0 Benign prostatic hyperplasia without lower urinary tract symptoms; F11.20 Opioid dependence, uncomplicated; J96.10 Chronic respiratory failure, unspecified whether with hypoxia or hypercapnia; R60.0 Localized edema; M54.9 Dorsalgia, unspecified; M25.551 Pain in right hip; G89.4 Chronic pain syndrome; Z86.711 Personal history of pulmonary embolism; Z86.718 Personal history of other venous thrombosis and embolism; Z87.891 Personal history of nicotine dependence; Z91.040 Latex allergy status; Z91.02 Food additives allergy status; Z96.641 Presence of right artificial hip joint; Z96.652 Presence of left artificial knee joint; Z79.82 Long term (current) use of aspirin; Z79.899 Other long term (current) drug therapy
CPT/HCPCS: 36415; 70450; 71045; 80048; 80053; 84484; 85025; 93005; 93880; 96374; 96375; 97162; 99284; G0378; J2405; J3360; Q0162

== ENCOUNTER → 2018-12-11 | Outpatient (CLI) | payer MEDICARE ==
[~2018-12-11] MED LIST changes: +DOXA1TAB2 PO; +FLUT1BLS3 INH; +Flonase NAS; +LANS30CA60 PO; +LOSA25TA2 PO; +MECL25TA4 PO; +OMNIPAQUE 350 MG/ML, 100ML BOTTLE ONE; +POTA10TA6 PO; +Tylenol PO; +VITAMIN AREDS EACHEYE; +[UNRECOGNIZED DRUG - OTHER]; +claritin; +flexeril; +hydrocodone; +ketoconazole; +oxycodone
== END | disposition home or self-care (01) ==
LOC: RAD 11:36
PROVIDERS: ATTEND Family Medicine
DX: I65.22 Occlusion and stenosis of left carotid artery (principal); M51.36 Other intervertebral disc degeneration, lumbar region
CPT/HCPCS: 70496; 70498; Q9967

== ENCOUNTER 2019-01-21 12:12 | Outpatient (CLI) | payer MEDICARE ==
[~2019-01-21 12:12] MED LIST changes: -ALBU6.7H IH; +ALBU6.7H8 IH; -OMNIPAQUE 350 MG/ML, 100ML BOTTLE ONE
== END 2019-01-21 23:59 | disposition home or self-care (01) ==
LOC: RAD 12:12
PROVIDERS: ATTEND Family Medicine
DX: G31.9 Degenerative disease of nervous system, unspecified (principal); M47.816 Spondylosis without myelopathy or radiculopathy, lumbar region; G89.29 Other chronic pain; Z98.890 Other specified postprocedural states
CPT/HCPCS: 70551; 72148

== ENCOUNTER 2020-01-29 08:29 | Outpatient (CLI) | payer MEDICARE ==
[~2020-01-29 08:29] MED LIST changes: +MECL-101 PO; -MECL25TA4 PO; -OLOP2.5D EACHEYE; +OLOP2.5D12 EACHEYE
== END 2020-01-29 23:59 | disposition home or self-care (01) ==
LOC: CVU 08:29
PROVIDERS: ATTEND Internal Medicine Cardiovascular Disease
DX: I11.9 Hypertensive heart disease without heart failure (principal); I42.2 Other hypertrophic cardiomyopathy
CPT/HCPCS: C8929; Q9957

== ENCOUNTER 2020-02-05 13:29 | Emergency (ER) | payer MEDICARE ==
[~2020-02-05] VITALS: Ht 185.4 cm; Wt 128.0 kg
--- NOTE | 2020-02-05 13:54 | NUR ---
BIBA. PT C/O DIFFICULTY SWALLOWING X 3 DAYS. DENIES COUGH/SORE THROAT/N/V/SOB. PT'S AOX4. RESPS EVEN AND UNLABORED. BP/SPO2 MONITORS IN PLACE. CALL LIGHT WITHIN REACH.
--- NOTE | 2020-02-05 14:22 | NUR ---
WATER PROVIDED PER REQUEST. EDMD OK'D TO GIVE SOME WATER.
--- NOTE | 2020-02-05 14:28 | NUR ---
PT REFUSED TO CHANGE. URINAL GIVEN PER REQUEST.
--- NOTE | 2020-02-05 15:16 | NUR ---
PT RESTING IN [facility]. PT'S AOX4. RESPS EVEN AND UNLABORED. BP/SPO2 MONITORS IN PLACE. CALL LIGHT WITHIN REACH.
--- NOTE | 2020-02-05 15:37 | NUR ---
PT'S UPDATED BY PHONE WITH PT'S PERMISSION AT THIS TIME.
--- NOTE | 2020-02-05 16:10 | NUR ---
PT RESTING IN [facility]. PT'S AOX4. RESPS EVEN AND UNLABORED. BP/SPO2 MONITORS IN PLACE. CALL LIGHT WITHIN REACH.
--- NOTE | 2020-02-05 16:20 | NUR ---
EDMD AT BEDSIDE TO EXPLAIN ALL RESULTS AT THIS TIME.
[2020-02-05 16:21] VITALS: BP 152/88
[2020-02-05] MEDS ORDERED: DEXTROSE 50%, 50ML SYRINGE IVPush PRN (16:30)
[2020-02-05] MEDS ORDERED: GLUCAGON 1 MG IM PRN (16:30)
--- NOTE | 2020-02-05 17:07 | NUR ---
Patient given discharge instructions and they have confirmed that they understand the instructions. Patient ambulatory with steady gait.
[2020-02-05] MEDS ORDERED: SODIUM CHLORIDE FLUSH 10ML SYR IVF SCH (21:00)
== END 2020-02-05 17:08 | disposition home or self-care (01) ==
LOC: ED 15:36
DX: J01.01 Acute recurrent maxillary sinusitis (principal); B96.89 Other specified bacterial agents as the cause of diseases classified elsewhere; R13.10 Dysphagia, unspecified; I10 Essential (primary) hypertension; J44.9 Chronic obstructive pulmonary disease, unspecified
CPT/HCPCS: 70360; 70486; 99284

== ENCOUNTER 2020-02-10 07:52 | Emergency (ER) | payer MEDICARE ==
[~2020-02-10] VITALS: Ht 188 cm; Wt 127.2 kg
[2020-02-10 08:43] LABS: BASOPHILS # (AUTO) 0.02 x10^3/uL (0-0.1); BASOPHILS % (AUTO) 0 % (0-1); EOSINOPHILS # (AUTO) 0.15 x10^3/uL (0-0.4); EOSINOPHILS % (AUTO) 1 % (1-7); LYMPHOCYTES # (AUTO) 1.34 x10^3/uL (1-3.4); LYMPHOCYTES % (AUTO) 12 % (22-44); MD NO; MEAN CORPUSCULAR HEMOGLOBIN 30.3 pg (27.5-34.5); MEAN CORPUSCULAR VOLUME 94.6 fL (81-97); MEAN PLATELET VOLUME 6.5 fL (7.4-10.4); MONOCYTES # (AUTO) 0.27 x10^3/uL (0.2-0.8); MONOCYTES % (AUTO) 2 % (2-9); NEUTROPHILS # (AUTO) 9.69 x10^3/uL (1.8-6.8); NEUTROPHILS % (AUTO) 85 % (42-75); PLATELET COUNT 289 x10^3/uL (130-400); RED CELL DISTRIBUTION WIDTH 14.3 % (9.4-14.8)
[2020-02-10] MEDS ORDERED: MAALOX/HYOSCYAMINE/LIDOCAINE 45 ML BTL ONE (08:47)
[2020-02-10 08:53] LABS: ALANINE AMINOTRANSFERASE 51 U/L (12-78); ALBUMIN 3.2 g/dL (3.4-5.0); ANION GAP 6 mmol/L (5-15); CALCIUM 8.3 mg/dL (8.5-10.1); CHLORIDE 104 mmol/L (98-107); CREATININE 1.14 mg/dL (0.7-1.3)
[2020-02-10 08:58] LABS: ALKALINE PHOSPHATASE 80 U/L (45-117); BILIRUBIN,TOTAL 0.5 mg/dL (0.2-1.0); TOTAL PROTEIN 7.2 g/dL (6.4-8.2); TROPONIN I < 0.015 ng/mL (0.000-0.045)
[2020-02-10] MEDS ORDERED: MAALOX/HYOSCYAMINE/LIDOCAINE 45 ML BTL PO ONE (09:00)
--- NOTE | 2020-02-10 09:00 | NUR ---
PT UPRIGHT ON [facility], RESPONDS APPROP TO STAFF, C/O PERSISTENT BURNING SENSATION & RELUCTANT TO TAKE GI COCKTAIL ("I'M AFRAID IT WILL CAUSE ME TO HAVE TROUBLE SWALLOWING AGAIN"), DR JAIMES NOTIFED & SPOKE TO PT, PT AGREEABLE TO TRYING GI COCKTAIL, NO NEEDS AT THIS TIME, CALL LIGHT WITHIN REACH
[2020-02-10] MEDS ORDERED: SODIUM CHLORIDE FLUSH 10ML SYR IVF ONE (09:30)
[2020-02-10] MEDS ORDERED: FAMOTIDINE 20 MG/2 ML IV ONE (10:00)
[2020-02-10 10:02] VITALS: BP 157/103
--- NOTE | 2020-02-10 10:18 | NUR ---
Patient given discharge instructions and Rx, they have confirmed that they understand the instructions. Patient ambulatory with steady gait.
== END 2020-02-10 11:07 | disposition home or self-care (01) ==
LOC: ED 10:16
DX: R13.14 Dysphagia, pharyngoesophageal phase (principal); J44.9 Chronic obstructive pulmonary disease, unspecified; G89.29 Other chronic pain; R94.31 Abnormal electrocardiogram [ECG] [EKG]; I10 Essential (primary) hypertension; Z88.2 Allergy status to sulfonamides
CPT/HCPCS: 36415; 71045; 80053; 83690; 84484; 85025; 93005; 99285

== ENCOUNTER → 2020-04-15 | Outpatient (CLI) | payer MEDICARE ==
[~2020-04-15] MED LIST changes: -OXYC-432 PO; +OXYC1TAB18 PO
== END | disposition home or self-care (01) ==
LOC: STAR 09:13
PROVIDERS: ATTEND Anesthesiology
DX: Z01.812 Encounter for preprocedural laboratory examination (principal); Z20.828 Contact with and (suspected) exposure to other viral communicable diseases
CPT/HCPCS: 87635

== ENCOUNTER 2020-04-19 05:39 | Day surgery (SDC) | payer MEDICARE ==
[~2020-04-19] VITALS: Ht 185.4 cm; Wt 130.0 kg
[2020-04-19] MEDS ORDERED: CHLORHEXIDINE 15 ML UDC MM STA (06:14)
[2020-04-19] MEDS ORDERED: LACTATED RINGERS 1,000 ML IV SCH (06:14)
[2020-04-19 06:16] VITALS: BP 150/89
[2020-04-19] MEDS ORDERED: BACITRACIN OINT 500U/GM, 15 GM ONE (06:49)
[2020-04-19] MEDS ORDERED: FLUORESCEIN SODIUM 500 MG/5 ML ONE (06:49)
[2020-04-19] MEDS ORDERED: EPINEPHRINE TOPICAL SOLN 1 MG/ML, 30ML ONE (06:49)
[2020-04-19] MEDS ORDERED: LIDOCAINE/PF 1%-EPI 1:200K, 30 ML ONE (06:49)
[2020-04-19] MEDS ORDERED: OXYMETAZOLINE NASAL SPRAY 0.05%,30ML ONE (06:50)
[2020-04-19] MEDS ORDERED: LIDOCAINE/PF 1%, 30ML ONE (07:02)
[2020-04-19] MEDS ORDERED: EPINEPHRINE 1 MG/ML, 1ML ONE (07:03)
[2020-04-19] MEDS ORDERED: PROPOFOL 10 MG/ML, 20ML ONE (07:29)
[2020-04-19] MEDS ORDERED: LIDOCAINE-MPF 2% ,5ML ONE ×5 (07:29→08:17)
[2020-04-19] MEDS ORDERED: SUCCINYLCHOLINE 20 MG/ML, 10ML ONE (07:39)
[2020-04-19] MEDS ORDERED: FENTANYL PF 100 MCG/2ML ONE (07:41)
[2020-04-19] MEDS ORDERED: OXYcodone 5 MG/5 ML ORAL.SOL UDC PO PRN (08:00)
[2020-04-19] MEDS ORDERED: ONDANSETRON 2MG/ML, 2ML IVPush PRN (08:00)
[2020-04-19] MEDS ORDERED: FENTANYL PF 100 MCG/2ML IV PRN (08:00)
[2020-04-19] MEDS ORDERED: CEFAZOLIN 1,000 MG ONE ×2 (08:07)
== END 2020-04-19 09:50 | disposition home or self-care (01) ==
LOC: OUT 05:39
PROVIDERS: ATTEND Otolaryngology
DX: J34.89 Other specified disorders of nose and nasal sinuses (principal); J31.0 Chronic rhinitis; J34.2 Deviated nasal septum; I10 Essential (primary) hypertension; E78.5 Hyperlipidemia, unspecified; J44.9 Chronic obstructive pulmonary disease, unspecified; Z86.711 Personal history of pulmonary embolism; G47.33 Obstructive sleep apnea (adult) (pediatric); K21.9 Gastro-esophageal reflux disease without esophagitis; Z79.82 Long term (current) use of aspirin; Z79.899 Other long term (current) drug therapy; Z91.040 Latex allergy status; Z88.2 Allergy status to sulfonamides; Z99.81 Dependence on supplemental oxygen
CPT/HCPCS: 30220; 31237; 88305; J0171; J0330; J0690; J2704; J3010; J7120

== ENCOUNTER 2020-07-17 20:19 | Emergency (ER) | payer MEDICARE ==
[~2020-07-17] VITALS: Ht 185.4 cm; Wt 123.4 kg
[2020-07-17] MEDS ORDERED: FAMOTIDINE 20 MG/2 ML IVPush ONE (21:00)
[2020-07-17 21:05] LABS: BASOPHILS % (AUTO) 0 % (0-1); EOSINOPHILS % (AUTO) 8 % (1-7); LYMPHOCYTES % (AUTO) 11 % (22-44); MEAN CORPUSCULAR HEMOGLOBIN 31.1 pg (27.5-34.5); MEAN CORPUSCULAR HGB CONC 33.3 g/dL (33.2-36.2); MEAN PLATELET VOLUME 6.7 fL (7.4-10.4); MONOCYTES % (AUTO) 6 % (2-9); NEUTROPHILS % (AUTO) 75 % (42-75); PLATELET COUNT 278 x10^3/uL (130-400); RED BLOOD COUNT 4.47 x10^6/uL (4.38-5.82); RED CELL DISTRIBUTION WIDTH 14.4 % (9.4-14.8)
[2020-07-17 21:08] LABS: MD NO
[2020-07-17] MEDS ORDERED: FAMOTIDINE 20 MG/2 ML ONE (21:11)
[2020-07-17 21:18] LABS: ALANINE AMINOTRANSFERASE 25 U/L (12-78); ALBUMIN 3.3 g/dL (3.4-5.0); ANION GAP 5 mmol/L (5-15); CHLORIDE 100 mmol/L (98-107); CREATININE 1.11 mg/dL (0.7-1.3)
[2020-07-17 21:20] LABS: ALKALINE PHOSPHATASE 92 U/L (45-117); BILIRUBIN,TOTAL 0.3 mg/dL (0.2-1.0); TOTAL PROTEIN 7.2 g/dL (6.4-8.2)
--- NOTE | 2020-07-17 21:41 | NUR ---
PT TO IMAGING
--- NOTE | 2020-07-17 21:56 | NUR ---
LATE ENTRY. BIBA FROM HOME FOR N/V. PT HAS HAD N/V FOR 2-3 WEEKS AND HAS SEEN GI SPECIALIST OUTPT WITH PLANS FOR CT ON 07/25/20. PT HAS BEEN ON LIQUID DIET AND ATTEMPTED TO EAT SOLID FOODS TODAY WHEN THE N/V BECAME WORSE. PT ALSO STATES MUSCLES ON HIS LEFT SIDE OF NECK HAS AFFECTED HIS SWALLOWING. PT TOOK PHENERGAN AT HOME PO AND EMS GAVE IM PHENERGAN. PTS AT BEDSIDE, ALSO STATING SHE WOULD LIKE PT TO HAVE SCOPE DONE AT SOMEPOINT. PT ON 4 L NC BASELINE FOR COPD.
[2020-07-17 22:07] LABS: MICROSCOPIC NOT IND
--- NOTE | 2020-07-17 22:40 | NUR ---
DIOGENES [phone]
[2020-07-17] MEDS ORDERED: OMNIPAQUE 350 MG/ML, 100ML BOTTLE ONE (23:46)
[2020-07-17 23:56] VITALS: BP 120/71
== END 2020-07-17 23:58 | disposition home or self-care (01) ==
LOC: ED 22:01
DX: R10.31 Right lower quadrant pain (principal); G89.29 Other chronic pain; R13.10 Dysphagia, unspecified; R11.10 Vomiting, unspecified; J44.9 Chronic obstructive pulmonary disease, unspecified; I10 Essential (primary) hypertension
CPT/HCPCS: 36415; 70491; 74177; 80053; 81003; 83690; 85025; 96374; 99285; Q9967

== ENCOUNTER 2020-07-25 09:26 | Outpatient (CLI) | payer MEDICARE ==
[~2020-07-25 09:26] MED LIST changes: -ASPI-515 PO; +ASPI-963 PO; -HYDR-3245 PO; +HYDR1TAB53 PO
== END 2020-07-25 23:59 | disposition home or self-care (01) ==
LOC: RAD 09:26
PROVIDERS: ATTEND Nurse Practitioner
DX: R10.11 Right upper quadrant pain (principal)
CPT/HCPCS: 74230

== ENCOUNTER → 2020-08-16 | Outpatient (CLI) | payer MEDICARE | END | disposition home or self-care (01) | LOC: STAR 14:39 | PROVIDERS: ATTEND Internal Medicine | DX: Z01.812 Encounter for preprocedural laboratory examination (principal); Z20.822 Contact with and (suspected) exposure to COVID-19; R13.10 Dysphagia, unspecified; K21.9 Gastro-esophageal reflux disease without esophagitis | CPT/HCPCS: 87635; 93005 ==

== ENCOUNTER 2020-08-22 05:41 | Emergency (ER) | payer MEDICARE ==
[~2020-08-22] VITALS: Ht 182.9 cm; Wt 130.8 kg
[2020-08-22] MEDS ORDERED: HYDROmorphone 2 MG/ML, 1ML IVPush PRN (06:00)
[2020-08-22] MEDS ORDERED: ONDANSETRON 2MG/ML, 2ML IVPush ONE (06:00)
[2020-08-22] MEDS ORDERED: SODIUM CHLORIDE FLUSH 10ML SYR IVF ONE (06:00)
[2020-08-22] MEDS ORDERED: HYDROmorphone 1 MG/ML, 1ML INJ ONE (06:10)
[2020-08-22] MEDS ORDERED: ONDANSETRON 2MG/ML, 2ML ONE (06:10)
[2020-08-22 06:31] LABS: BASOPHILS % (AUTO) 1 % (0-1); EOSINOPHILS % (AUTO) 8 % (1-7); LYMPHOCYTES % (AUTO) 15 % (22-44); MEAN PLATELET VOLUME 6.9 fL (7.4-10.4); MONOCYTES % (AUTO) 6 % (2-9); NEUTROPHILS % (AUTO) 69 % (42-75); PLATELET COUNT 301 x10^3/uL (130-400); RED BLOOD COUNT 4.27 x10^6/uL (4.38-5.82); RED CELL DISTRIBUTION WIDTH 14.3 % (9.4-14.8)
--- NOTE | 2020-08-22 06:34 | NUR ---
BIB [facility] WITH C/O CONSTIPATION FOR 3 DAYS. PATIENT STATES "IM THROWING UP THIS CLEAR STUFF". PATIENT NOTED TO BE SPITTING UP SALIVA INTO EMESIS BAG. DENIES ANY COFFEE GROUND VOMITUS AND REPORTS IT TO BE ALL CLEAR IS SEEN IN EMESIS BAG. ALSO, C/O ABDOMINAL PAIN "TIGHTNESS/PRESSURE". ROUNDED DISTENDED ABDOMEN NOTED WITH PRESENT BOWEL SOUNDS. PATIENT HAS MED LIST WITH HIM BUT THIS IS VERY LONG IN LENGTH. IV PRESENT ON ARRIVAL - FLUSHED WITH NS. PATIENT STOOD AT BEDSIDE TO USE URINAL WITH STANDBY ASSIST HE IS STEADY ON FEET BUT SWAYING BACK AND FORTH AT TIMES. RN AT BEDSIDE FOR SAFETY. UA COLLECTED AND SENT. PATIENT C/O "IM COLD". WARM BLANKETS PROVIDED. PILLOW PROVIDED FOR COMFORT. PATIENT REPORTS HAVING A SPINAL STIMULATOR WELL. VS REMAIN STABLE ON BASELINE 4L VIA NC. NEW O2 NASAL CANNULA PROVIDED PER PATIENT REQUEST. AT BEDSIDE. CALL WYATT IN REACH. I ADMINISTERED ORDERED MEDICATION OF ZOFRAN AND DILAUDID. I EDUCATED PATIENT ON THESE MEDICATIONS PRIOR TO ADMINISTERING. PATIENT BECAME BRIEFLY DIZZY AFTER DILAUDID ADMINISTERED SLOWLY OVER 2 MINUTES. WILL CONTINUE TO MONITOR. SAFETY MAINTAINED
[2020-08-22 06:36] LABS: ALBUMIN 3.4 g/dL (3.4-5.0); ANION GAP 4 mmol/L (5-15); CALCIUM 9.6 mg/dL (8.5-10.1); CHLORIDE 107 mmol/L (98-107)
[2020-08-22 06:38] LABS: MICROSCOPIC NOT IND
[2020-08-22 06:39] LABS: ALANINE AMINOTRANSFERASE 24 U/L (12-78); ALKALINE PHOSPHATASE 83 U/L (45-117); BILIRUBIN,TOTAL 0.5 mg/dL (0.2-1.0); CREATININE 1.05 mg/dL (0.7-1.3)
[2020-08-22 06:40] LABS: MD NO
--- NOTE | 2020-08-22 06:52 | NUR ---
REPORT GIVEN TO PERFECTO GIORDANO AND CARE TRANSFERRED. PATIENT RETURNED FROM CT
[2020-08-22] MEDS ORDERED: OMNIPAQUE 350 MG/ML, 100ML BOTTLE ONE (06:55)
--- NOTE | 2020-08-22 07:00 | NUR ---
Report received from PASQUALE Rodriguez and care assumed. Pt just arrived back on unit from radiology without acute changes noted per off-going RN.
--- NOTE | 2020-08-22 07:32 | NUR ---
Full assessment completed, monitor lines untangled, O2 increased from 2L/min to 4L/min as he uses at home secondary to SpO2 at 93% at the lower flow rate. Call light in reach, and pain rated as 3/10 at this time after medical appliance maker by production shift supervisor RN.
[2020-08-22] MEDS ORDERED: CHOL500050 PO (08:18)
[2020-08-22] MEDS ORDERED: OMEG1CAP39 PO (08:18)
[2020-08-22] MEDS ORDERED: GUAI118L49 PO (08:18)
[2020-08-22] MEDS ORDERED: HYDR-3248 PO (08:18)
[2020-08-22] MEDS ORDERED: GABA300C PO (08:18)
[2020-08-22] MEDS ORDERED: TRIA15CR2 TD (08:18)
[2020-08-22] MEDS ORDERED: MONT10TA6 PO (08:18)
[2020-08-22] MEDS ORDERED: TADA5TAB13 PO (08:18)
[2020-08-22] MEDS ORDERED: TRIA10.8 INH (08:18)
--- NOTE | 2020-08-22 08:38 | NUR ---
Note luisaone in EDM - 08/22/20 at 0904 by BIRD Pt assisted to standing position at bedside for use of urinal with 175mL clear, light yellow uop emptied with urinal returned to bedside. VS reassessed with noted decreased BP at this time. Pt states abd pain is still low after multi media specialist but that he now has a MATAMOROS 5/10 rating starting to come on. Pt and aware they are awaiting MD return to bedside for reassessment and discussion of results as well as plan of care.
--- NOTE | 2020-08-22 09:04 | NUR ---
Juan Alberto vital in [facility] - 08/22/20 at 0906 by BIRD zahraa note was written on wrong pt.
--- NOTE | 2020-08-22 09:06 | NUR ---
first undone note was on correct patient, second note stating undone due to wrong pt was incorrect. Pt was assisted at that time to standing for use of urinal with 175mL clear light yellow uop, assisted back to bed with call light in reach and waiting for MD recheck.
--- NOTE | 2020-08-22 09:13 | NUR ---
Pt provided cup of water with instructions to sip small sips slowly with short rests in between sips until cup is empty to test how his stomach handles fluids as ordered by MD. Pt verbalized concerns that there was nothing wrong found on CT scan and wondering what comes next if he can't keep the water down. New emesis bag provided for assertion of new verus old emesis.
--- NOTE | 2020-08-22 09:36 | NUR ---
Pt reassessed after start of PO challenge. Pt without emesis or nausea, cup of water emptied, and pt states he feels that since he has had anti-nausea medication he isn't feeling as he would if he hadn't. Education on medication purpose and that not feeling nauseated is what that medication was for so that he could keep water, food and his normal medications down was a positive assessment finding provided with frustration verbalized about not being able to be given a dx. MD notified of passed po challenge and at bedside now to discuss plan of care with pt and his .
[2020-08-22 10:20] VITALS: BP 149/83
== END 2020-08-22 10:22 | disposition home or self-care (01) ==
LOC: ED 06:46
DX: K21.9 Gastro-esophageal reflux disease without esophagitis (principal); R10.84 Generalized abdominal pain; R11.2 Nausea with vomiting, unspecified; E86.0 Dehydration; G89.29 Other chronic pain; J44.9 Chronic obstructive pulmonary disease, unspecified
CPT/HCPCS: 36415; 74177; 80053; 81003; 83690; 85025; 96374; 96375; 99285; J1170; J2405; Q9967

== ENCOUNTER → 2020-08-25 | Outpatient (CLI) | payer MEDICARE ==
[~2020-08-25] MED LIST changes: +CHOL500050 PO; +GABA300C PO; +GUAI118L49 PO; +HYDR-3248 PO; +OMEG1CAP39 PO; +TADA5TAB13 PO; +TRIA10.8 INH; +TRIA15CR2 TD
== END | disposition home or self-care (01) ==
LOC: LAB 11:59
PROVIDERS: ATTEND Family Medicine
DX: Z20.822 Contact with and (suspected) exposure to COVID-19 (principal)
CPT/HCPCS: U0003

== ENCOUNTER 2020-08-30 08:03 | Day surgery (SDC) | payer MEDICARE ==
[~2020-08-30] VITALS: Ht 188 cm; Wt 127.0 kg
[2020-08-30] MEDS ORDERED: CHLORHEXIDINE 15 ML UDC MM ONE (09:00)
[2020-08-30] MEDS ORDERED: CHLORHEXIDINE 15 ML UDC ONE (09:02)
[2020-08-30 09:28] VITALS: BP 122/77
[2020-08-30] MEDS ORDERED: PROPOFOL 10 MG/ML, 20ML ONE ×2 (09:45)
[2020-08-30] MEDS ORDERED: LACTATED RINGERS 1,000 ML IV SCH (10:00)
[2020-08-30] MEDS ORDERED: PHENYLEPHRINE 10 MG/ML ONE (10:04)
== END 2020-08-30 11:45 | disposition home or self-care (01) ==
LOC: OUT 08:03
PROVIDERS: ATTEND Internal Medicine
DX: K29.50 Unspecified chronic gastritis without bleeding (principal); K21.9 Gastro-esophageal reflux disease without esophagitis; I10 Essential (primary) hypertension; E11.9 Type 2 diabetes mellitus without complications; J44.9 Chronic obstructive pulmonary disease, unspecified; Z79.82 Long term (current) use of aspirin; Z98.890 Other specified postprocedural states; Z91.040 Latex allergy status; Z91.048 Other nonmedicinal substance allergy status; Z79.899 Other long term (current) drug therapy
CPT/HCPCS: 43239; 43248; 88305; J2370; J2704; J7120

== ENCOUNTER 2020-11-27 08:35 | Observation (INO) | payer MEDICARE ==
[~2020-11-27] VITALS: Ht 182.9 cm; Wt 128.0 kg
--- NOTE | 2020-11-27 08:56 | NUR ---
ERMD AT BEDSIDE FOR EVALUATION.
--- NOTE | 2020-11-27 08:57 | NUR ---
PATIENT WHEELED BACK FROM TRIAGE WITH CHIEF C/O CHEST TIGHTNESS THAT STARTED THIS MORNING. PER PATIENT "FELT LIKE MY CHEST WENT TO MY STOMACH." PATIENT REPORTS FEELING CLAMMY AND SOB, BUT STATES "I'M ALWAYS SOB." DENIES ABD PAIN, HAD ONE EPISODE OF EMESIS THIS MORNIN, RPEORTS NAUSEA. PATIENT CONNECTED TO MONITOR, HR 104, OTHER VSS, CALL LIGHT WITHIN REACH, AT BEDSIDE.
[2020-11-27] MEDS ORDERED: ASPIRIN 81 MG TABLET CHEW PO ONE (09:00)
[2020-11-27] MEDS ORDERED: MORPHINE SULFATE 4 MG/ML, 1ML IVPush PRN (09:00)
[2020-11-27] MEDS ORDERED: SODIUM CHLORIDE FLUSH 10ML SYR IVF ONE (09:00)
[2020-11-27] MEDS ORDERED: ASPIRIN 81 MG TABLET CHEW ONE (09:12)
--- NOTE | 2020-11-27 09:16 | NUR ---
PATIENT REFUSING MORPHINE AT THIS TIME.
--- NOTE | 2020-11-27 09:47 | NUR ---
lab called and will be re-drawing pt.
[2020-11-27 09:54] LABS: ALANINE AMINOTRANSFERASE 22 U/L (12-78); ALBUMIN 3.7 g/dL (3.4-5.0); ANION GAP 6 mmol/L (5-15); CALCIUM 9.4 mg/dL (8.5-10.1); CHLORIDE 103 mmol/L (98-107); CREATININE 1.21 mg/dL (0.7-1.3)
[2020-11-27 09:58] LABS: ALKALINE PHOSPHATASE 87 U/L (45-117); BILIRUBIN,TOTAL 0.4 mg/dL (0.2-1.0); TOTAL PROTEIN 7.6 g/dL (6.4-8.2); TROPONIN I < 0.015 ng/mL (0.000-0.045)
--- NOTE | 2020-11-27 10:00 | NUR ---
EMERGENCY MEDICINE MEDICAL DIRECTOR AT BEDSIDE FOR REDRAW.
[2020-11-27 10:17] LABS: BASOPHILS % (AUTO) 0 % (0-1); EOSINOPHILS % (AUTO) 9 % (1-7); LYMPHOCYTES % (AUTO) 14 % (22-44); MD NO; MEAN CORPUSCULAR HEMOGLOBIN 30.8 pg (27.5-34.5); MEAN CORPUSCULAR HGB CONC 33.1 g/dL (33.2-36.2); MONOCYTES % (AUTO) 7 % (2-9); NEUTROPHILS % (AUTO) 71 % (42-75); PLATELET COUNT 273 x10^3/uL (130-400); RED BLOOD COUNT 4.42 x10^6/uL (4.38-5.82); RED CELL DISTRIBUTION WIDTH 14.9 % (9.4-14.8)
--- NOTE | 2020-11-27 11:02 | NUR ---
MIGUEL ÁNGELD UPDATED PATIENT ON POC, CONNECTED TO MONITOR, VSS, NADN, AT BEDSIDE, CALL LIGHT WITHIN REACH. WAITING FOR BED ASSIGNMENT UPSTAIRS.
[2020-11-27] MEDS ORDERED: FURO20TA3 PO (11:12)
[2020-11-27] MEDS ORDERED: OXYC-296 PO (11:12)
[2020-11-27] MEDS ORDERED: ALBU6.7H8 INH (11:12)
[2020-11-27] MEDS ORDERED: FLUT1BLS3 IH (11:12)
[2020-11-27] MEDS ORDERED: MONT10TA6 PO (11:12)
[2020-11-27] MEDS ORDERED: MELA5TAB14 PO (11:17)
--- NOTE | 2020-11-27 11:24 | NUR ---
DR. TOLLIVER [facility] AT BEDSIDE TO DISCUSS ADMISSION.
--- NOTE | 2020-11-27 11:38 | NUR ---
REPORT GIVEN TO PASQUALE GUERRIER FOR TRANSFER OF PATIENT CARE.
[2020-11-27] MEDS ORDERED: morphine SULFATE 10 MG/ML, 1ML IV PRN (12:00)
[2020-11-27] MEDS ORDERED: ONDANSETRON 2MG/ML, 2ML IV PRN (12:00)
[2020-11-27] MEDS ORDERED: morphine SULFATE 10 MG/ML, 1ML IVPush PRN (12:00)
[2020-11-27] MEDS ORDERED: ALBUTEROL HFA 90 MCG/SPRAY INH PRN (12:00)
--- NOTE | 2020-11-27 12:13 | NUR ---
PATIENT TRANSFERRED TO CARDIAC TELEMETRY VIA GURNEY IN STABLE CONDITION WITH C JAVA DEVELOPER, ALL PATIENT BELONGINGS GATHERED AND TAKEN TO FLOOR WITH PATIENT.
[2020-11-27 12:15] VITALS: BP 127/82
[2020-11-27 12:26] LABS: CHOLESTEROL, TOTAL 121 mg/dL (140-239)
[2020-11-27 12:28] LABS: TRIGLYCERIDES 74 mg/dL (50-200); TROPONIN I < 0.015 ng/mL (0.000-0.045); VLDL CHOLESTEROL 15 mg/dL (0-25)
[2020-11-27 12:29] LABS: CHOL/HDL RATIO 2.7; HDL CHOL % 37 % (26-37); HDL CHOLESTEROL (DIRECT) 45 mg/dL (40-60); LDL CHOLESTEROL,CALCULATED 61 mg/dL (54-169); LDL/HDL RATIO 1.4 (0.5-3.0)
[2020-11-27] MEDS: HYDROcodone/APAP 5/325 TABLET PO PRN (13:55)
[2020-11-27] MEDS: GABAPENTIN 300 MG CAPSULE PO SCH ×2 (16:51→20:02)
[2020-11-27 18:14] LABS: TROPONIN I < 0.015 ng/mL (0.000-0.045)
[2020-11-27] MEDS: ACETAMINOPHEN 325 MG TABLET PO PRN (20:02)
[2020-11-27] MEDS ORDERED: POLYETHYLENE GLYCOL 17 GM PACKET PO SCH (21:00)
[2020-11-27] MEDS ORDERED: MELATONIN 5 MG TABLET PO SCH (21:00)
[2020-11-27] MEDS ORDERED: MONTELUKAST 10 MG TABLET PO SCH (21:00)
[2020-11-27] MEDS ORDERED: PRAVASTATIN 20 MG TABLET PO SCH (21:00)
[2020-11-27 21:39] VITALS: BP 140/84
[2020-11-27 23:23] VITALS: BP 146/87
[2020-11-28 02:12] VITALS: BP 148/84
[2020-11-28] MEDS ORDERED: OXYC5TAB2 PO (05:17)
[2020-11-28] MEDS: HYDROcodone/APAP 5/325 TABLET PO PRN ×2 (05:51→15:01)
[2020-11-28 06:23] LABS: ALBUMIN 3.5 g/dL (3.4-5.0); ANION GAP 7 mmol/L (5-15); CALCIUM 9.1 mg/dL (8.5-10.1); CHLORIDE 103 mmol/L (98-107)
[2020-11-28 06:27] LABS: ALANINE AMINOTRANSFERASE 21 U/L (12-78); ALKALINE PHOSPHATASE 79 U/L (45-117); BILIRUBIN,TOTAL 0.4 mg/dL (0.2-1.0); CREATININE 1.11 mg/dL (0.7-1.3); TOTAL PROTEIN 7.3 g/dL (6.4-8.2)
[2020-11-28 06:35] VITALS: BP 147/86
[2020-11-28] MEDS: GABAPENTIN 300 MG CAPSULE PO SCH (08:12)
[2020-11-28] MEDS: ACETAMINOPHEN 325 MG TABLET PO PRN (08:12)
[2020-11-28] MEDS ORDERED: REGADENOSON 0.4 MG/5 ML SYRINGE ONE (08:41)
[2020-11-28] MEDS ORDERED: TEMPLATE NON-FORMULARY MED. (Fluticasone/Umeclidin/Vilanter (Trelegy Ellipta 100-62.5-25 INH SCH (09:00)
[2020-11-28] MEDS ORDERED: FUROSEMIDE 20 MG TABLET PO SCH (09:00)
[2020-11-28] MEDS ORDERED: DOXAZOSIN 1MG TABLET PO SCH (09:00)
[2020-11-28] MEDS ORDERED: ASPIRIN 81 MG TABLET EC PO SCH (09:00)
[2020-11-28] MEDS ORDERED: POTASSIUM CHLORIDE 10 MEQ TABLET.ER PO SCH (09:00)
[2020-11-28 12:05] VITALS: BP 145/84
== END 2020-11-28 15:23 | disposition home or self-care (01) ==
LOC: ED 09:32 → EDIP 11:06 → INTOOBSV 11:06 → 5SO 12:07 → DCLOUNGE 11-28 15:11
PROVIDERS: ADMIT Hospitalist; ATTEND Hospitalist
DX: R07.89 Other chest pain (principal); G89.29 Other chronic pain; M54.9 Dorsalgia, unspecified; M25.551 Pain in right hip; J96.10 Chronic respiratory failure, unspecified whether with hypoxia or hypercapnia; J44.9 Chronic obstructive pulmonary disease, unspecified; R60.0 Localized edema; E78.5 Hyperlipidemia, unspecified; I10 Essential (primary) hypertension; I51.89 Other ill-defined heart diseases; K21.9 Gastro-esophageal reflux disease without esophagitis; N40.0 Benign prostatic hyperplasia without lower urinary tract symptoms; E66.9 Obesity, unspecified; Z86.718 Personal history of other venous thrombosis and embolism; Z86.711 Personal history of pulmonary embolism; Z87.891 Personal history of nicotine dependence; Z79.82 Long term (current) use of aspirin; Z79.899 Other long term (current) drug therapy; Z91.040 Latex allergy status
CPT/HCPCS: 36415; 71045; 78452; 80053; 80061; 84145; 84484; 85025; 85379; 93005; 93017; 96374; 99285; A9502; C9898; G0378; J2405; J2785